=== PATIENT | male | born 1985 | race Caucasian/White ===

== ENCOUNTER 2017-10-01 18:22 | Emergency (ER) | payer BC ==
[2017-10-01] MEDS ORDERED: Rabies Vaccine (RabAvert)* 2.5 UNITS VIAL IM ONE (20:14)
[2017-10-01] MEDS ORDERED: Rabies Immune Globulin 10 ML* 150 UNIT/ML VIAL IM ONE (20:14)
--- NOTE | 2017-10-01 20:23 | ED ---
Bite Injury/Animal - HPI Summary HPI Summary: Patient and his woke up this morning with live bat in the room. No known history of bite. PCP sent family for rabies Ig and vaccination. Denies rash, fever, cough, sore throat, CP, SOB, N/V/V abdominal pain, change in urinary BM. Tetanus status up-to-date. Rabies vaccination status unknown - History of Current Complaint Chief Complaint: EDGeneral Stated Complaint: BAT EXPOSURE Time Seen by Provider: 10/01/17 19:05 Hx Obtained From: Patient Onset of Injury: Happened hours ago Type of Bite: Animal Pain Intensity: 0 Associated Signs And Symptoms: Positive: Negative - Allergies/Home Medications Allergies/Adverse Reactions: Allergies Allergy/AdvReac Type Severity Reaction Status Date / Time No Known Allergies Allergy Verified 10/01/17 18:34 Home Medications: Home Medications Dextroamphetamine/Amphetamine [Adderall Xr 30 mg Capsule] 25 mg PO DAILY [History Confirmed 10/01/17] PMH/Surg Hx/FS Hx/Imm Hx - Immunization History Date of Tetanus Vaccine: 05/2017 Immunizations Up to Date: Yes Infectious Disease History: No Infectious Disease History: Denies: Traveled Outside the [place] in Last 30 Days - Social History Alcohol Use: Weekly Alcohol Amount: 2x/week Substance Use Type: Reports: None Smoking Status (MU): Never Smoked Tobacco Review of Systems Constitutional: Negative Eyes: Negative ENT: Negative Cardiovascular: Negative Respiratory: Negative Gastrointestinal: Negative Genitourinary: Negative Musculoskeletal: Negative Skin: Negative Neurological: Negative Psychological: Normal All Other Systems Reviewed And Are Negative: Yes Physical Exam - Summary Physical Exam Summary: No rash or wounds found. Patient in no apparent distress, has no complaints. Triage Information Reviewed: Yes Vital Signs On Initial Exam: Initial Vitals Temp Pulse Resp BP Pulse Ox 98.9 F 84 16 117/78 98 10/01/17 18:32 10/01/17 18:32 10/01/17 18:32 10/01/17 18:32 10/01/17 18:32 Vital Signs Reviewed: Yes Appearance: Positive: Well-Appearing Skin: Positive: Warm Head/Face: Positive: Normal Head/Face Inspection Eyes: Positive: Normal ENT: Positive: Normal ENT inspection Neck: Positive: Supple Respiratory/Lung Sounds: Positive: Clear to Auscultation Cardiovascular: Positive: Normal Abdomen Description: Positive: Nontender Musculoskeletal: Positive: Normal Neurological: Positive: Normal Psychiatric: Positive: Normal AVPU Assessment: Alert - [place] Coma Scale Best Eye Response: 4 - Spontaneous Best Motor Response: 6 - Obeys Commands Best Verbal Response: 5 - Oriented Coma Scale Total: 15 Diagnostics - Vital Signs Vital Signs Temp Pulse Resp BP Pulse Ox 10/01/17 18:32 98.9 F 84 16 117/78 98 - Laboratory Lab Statement: Any lab studies that have been ordered have been reviewed, and results considered in the medical decision making process. Bite Injury Course/Dx - Course Course Of Treatment: D[facility] patient and family with [facility] who recommended immunoglobulin and vaccine for mom and dad and jessica (whose door was open). Stated it was not necessary vaccinate the youngest child as that bedroom door was closed. Patient will be called by health department tomorrow to arrange follow-up vaccinations. - Diagnoses Provider Diagnosis: Exposure to bat without known bite Discharge - Sign-Out/Discharge Documenting (check all that apply): Discharge/Admit/Transfer - Discharge Plan Condition: Stable Disposition: HOME Patient Education Materials: Rabies Vaccine (By injection), Rabies Immune Globulin (By injection), Rabies (ED) Referrals: Christiano Marrero MD [Primary Care Provider] - Additional Instructions: Follow-up with [facility] to arrange for following vaccinations on days 3, 7, 14. [facility] does not recommend rabies vaccination or immunoglobulin for youngest child whose door was closed. Return to the ED for any new or worsening symptoms - Billing Disposition and Condition Condition: STABLE Disposition: HOME
[2017-10-01 23:15] VITALS: BP 123/75
== END 2017-10-01 23:07 | disposition home or self-care (01) ==
LOC: ED 18:22
DX: Z20.3 Contact with and (suspected) exposure to rabies (principal)
CPT/HCPCS: 90375; 90471; 90675; 99281

== ENCOUNTER 2019-06-01 09:11 | Emergency (ER) | payer OTHER ==
[2019-06-01 09:29] VITALS: BP 115/75
--- NOTE | 2019-06-01 10:13 | UC ---
Nausea/Vomiting/Diarrhea HPI - HPI Summary HPI Summary: 34 y/o male presents to the urgent care c/o Vomiting/ dairrhea since last night. Reports chills last night - History of Current Complaint Chief Complaint: UCGeneralIllness Stated Complaint: NAUSEA, DIARRHA Time Seen by Provider: 06/01/19 10:11 Hx Obtained From: Patient Onset/Duration: Gradual Onset, Lasting Days - 1 day, Still Present - but better Timing: Intermittent Episodes Lasting: - seconds Severity Initially: Mild Severity Currently: Mild Pain Intensity: 2 - bodya aches Pain Scale Used: 0-10 Numeric Location: Diffuse - mild ache Character: Cramping - before bowel movement and then it resolves Aggravating Factor(s): Nothing Alleviating Factor(s): Bowel Movement Nausea/Vomiting Presence: Nauseated - last night, Vomiting - last night Vomiting Frequency: At Meal Time - last nihgt 1 big episode Nausea/Vomiting Duration: 0-12 hours Vomiting Characteristics: Nonbilious Diarrhea Presence: Yes Diarrhea Frequency: Daily - 1 boig episode today Diarrhea Duration: 12-24 hours Diarrhea Characteristics: Watery - Risk Factors Influenza Risk Factors: Negative Surgical Obstruction Risk Factor(s): Negative - Allergies/Home Medications Allergies/Adverse Reactions: Allergies Allergy/AdvReac Type Severity Reaction Status Date / Time No Known Allergies Allergy Verified 06/01/19 09:22 Home Medications: Home Medications Dextroamphetamine/Amphetamine [Adderall Xr 20 mg Capsule] 1 cap PO DAILY WITH MEAL 06/01/19 [History Confirmed 06/01/19] PMH/Surg Hx/FS Hx/Imm Hx - Surgical History Surgery Procedure, Year, and Place: Pyloric stenosis as infant. T&A - Social History Alcohol Use: Occasionally Substance Use Type: None Smoking Status (MU): Never Smoked Tobacco Physical Exam - Summary Physical Exam Summary: Vital Signs Reviewed: Yes General:Patient is a well developed and nourished male who is sitting comfortable in the examining table. Patient is not in any acute respiratory distress. Eyes: Positive: Conjunctiva Clear - PERRLA, EOMI, fundi grossly normal ENT: Positive: Normal ENT inspection, Hearing grossly normal, Pharynx normal, TMs normal Neck: Positive: Supple, Nontender, No Lymphadenopathy Respiratory: Positive: Chest non-tender, Lungs clear, Normal breath sounds, No respiratory distress Cardiovascular: Positive: RRR,S1 and S2 present, No Murmur, Pulses Normal, Brisk Capillary Refill Abdomen Description: Positive: Nontender, Other: - Abd: Flat with no distention. No surface trauma, scars, incisions. hyperactive bowel sounds present in all four quadrants. No tenderness, guarding, rigidity to palpation. No masses palpated, no pulsation in epigastric area. No organomegaly. Negative Sontag signs. No periumbilical tenderness. No rebound in the lower quadrants. NT over McBurneys point. Left side suprapubic tenderness with no distension. Good femoral pulses bilaterally. No hernia noted. No CVAT bilaterally Musculoskeletal: Positive: Strength Intact, ROM Intact, No Edema,FROM in all major joints, no edema, no cyanosis or clubbing. Neuro: Alert and oriented x 3. No acute neurological deficits. Speech is normal. Psychological: WNL Skin: Dry and warm Triage Information Reviewed: Yes Vital Signs: Initial Vital Signs Temp 98.4 F 06/01/19 09:24 Pulse 87 06/01/19 09:24 Resp 18 06/01/19 09:24 BP 115/75 06/01/19 09:24 Pulse Ox 99 06/01/19 09:24 Naus/Vom/Diarrhea Course/Dx - Differential Dx/Diagnosis Differential Diagnoses - Male: Appendicitis, Gastroenteritis (Viral), Gastroenteritis (Bacterial), Vomiting, Diarrhea, Colitis Provider Diagnosis: Vomiting and diarrhea Condition At Discharge: Stable Discharge ED - Sign-Out/Discharge Documenting (check all that apply): Patient Departure - D/C home All imaging exams completed and their final reports reviewed: No Studies - Discharge Plan Condition: Stable Disposition: HOME Patient Education Materials: Gastroenteritis (ED) Forms: *Work Release Referrals: Christiano Marrero MD [Primary Care Provider] - 2 Days Additional Instructions: 1- Please increase fluid intake w/ Pedialyte or Gatorade. eat soft meals and avoid strenuous exercise and rest 2-If Diarrhea worsens please take Imodium PO. 3-Please take Zofran PO as directed only if vomiting returns 4-If symptoms do not improve or worsen please return to the urgent care or f/u with your PCP for further evaluation and treatment. 5- If you develops fever or abdominal pain w/ recurrent episodes of diarrhea please go to the ER, otherwise f/u with your PCP if diarrhea not resolving in 2- 3 days - Billing Disposition and Condition Condition: STABLE Disposition: Home
[2019-06-01 10:43] LABS: Influenza A Molecular NEGATIVE (Negative); Influenza B Molecular NEGATIVE (Negative)
== END 2019-06-01 10:55 | disposition home or self-care (01) ==
LOC: UCEAST 09:11 → MERGE 09:11 → UCEAST 10:55
DX: R19.7 Diarrhea, unspecified (principal); R11.2 Nausea with vomiting, unspecified
CPT/HCPCS: 82270; 83630; 87045; 87046; 87425; 87493; 87899; 99202; G0463

== ENCOUNTER 2019-07-09 09:41 | Emergency (ER) | payer OTHER ==
[2019-07-09 09:53] VITALS: BP 110/81
--- NOTE | 2019-07-09 10:26 | UC ---
Eye Complaint HPI - HPI Summary HPI Summary: Pt presents to with 2 complaints: 1) pt with left eye reddness,drainage, itching x 2 days. PT had similar sx in right eye -resolved earlier this week. Pt wears glasses, no contact. Pt has head congestion, sinus pressure, pnd and cough x 2 weeks. pt states feels fatigue. mild cough - non productive. + PND + ear fullness. Pt has been using Afrin with short term relief. Pt denies n/v/d. No rash No fever, chills. Pt denies rubalcava, vision changes. Pt states kdis have been sick, one with inluenza Works in [employer] for [employer] 2) Pt sustained laceration to right thumb this am cutting bagel at home. cleansed and bandaged. no active bleeding. 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 T&A - Family History Known Family History: Positive: Cardiac Disease, Diabetes, Non-Contributory - Social History Occupation: Employed Full-time Lives: With Family Alcohol Use: Occasionally Alcohol Amount: 2x/week Substance Use Type: None Smoking Status (MU): Never Smoked Tobacco Review of Systems All Other Systems Reviewed And Are Negative: Yes Constitutional: Positive: Fatigue. Negative: Fever Skin: Positive: Other - laceration Eyes: Positive: Drainage, Eye Redness ENT: Positive: Nasal Discharge, Sinus Congestion Respiratory: Positive: Cough. Negative: Shortness Of Breath Cardiovascular: Positive: Negative Gastrointestinal: Positive: Negative Genitourinary: Positive: Negative Physical Exam - Summary Physical Exam Summary: Vital Signs Reviewed: Yes A+Ox3, no distress, congested Eyes: SLOAN. EOM intact and full, left eye + injection, no lid edema, no photophobia ENT: Hearing grossly normal TM x 2 clear, + congested and boggy, + PND, + TTP max sinus L>R + frontal sinus congestion, mmoist, uvula midline, no exudate, no erythema Neck: Positive: Supple Respiratory: Positive: No respiratory distress, No accessory muscle use + CTA throughout no w/r Cardiovascular: RRR nl s1, s2 no m/r CBT <2 sec abd soft + BS nt/nd no guarding, no distension Musculoskeletal Exam: GUDINO x 4 without difficulty Strength Intact, ROM Intact Neurological: Positive: Alert, + sensation throughout Psychological: Positive: Normal 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 Skin: Positive: no rash, no ecchymosis, right thumb: 1cm laceration lateral aspect from pad to edge of nail - no nail involvement, no active bleeding Triage Information Reviewed: Yes Vital Signs: Initial Vital Signs Temp 98.4 F 07/09/19 09:48 Pulse 81 07/09/19 09:48 Resp 18 07/09/19 09:48 BP 110/81 07/09/19 09:48 Pulse Ox 99 07/09/19 09:48 Eye Complaint Course/Dx - Course Course Of Treatment: Pt presetnes with 2 complaints 1) left eye erythema, drainage, sinus congestion, coug x 2 weeks On exam -c/w rhinosinusitiss and conjunctivitis will check influenz - daughter with + flu - 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 If neg abx abx for eye pt resistant to flonase, decongestant as on addrerall reviewed with pt caution regarding ongoin Afrin use pt understanding of precaution 2_ pt with wound left thumb wound irrigated - well aligned,no active bleeding reviewed treatment options with pt after verbal permission - applied skin adhesive with good approximation Pt given tetanus booster reivewed wound care s/s infection - Differential Dx/Diagnosis Provider Diagnosis: Conjunctivitis, Rhinosinusitis, Need for tetanus booster, Laceration Discharge ED - Sign-Out/Discharge Documenting (check all that apply): Patient Departure All imaging exams completed and their final reports reviewed: No Studies - Discharge Plan Condition: Stable Disposition: HOME Prescriptions: Amoxicillin PO (*) [Amoxicillin 500 MG CAP*] 500 mg PO Q12H #20 cap Fluticasone NASAL SPRAY 50MCG* [Flonase NASAL SPRAY 50MCG*] 2 spray BOTH NARES DAILY #1 btl Patient Education Materials: Diphtheria/Acellular Pertussis/Tetanus Booster Vaccine (By injection), Upper Respiratory Infection (ED), Skin Adhesive Care (ED ), Conjunctivitis (ED) Referrals: Christiano Marrero MD [Primary Care Provider] - Additional Instructions: - apply eye drops to affected every 3 times a day for 5 days -okay to alternate ibuprofen (Advil, Motrin) 600mg and tylenol every 3 hours for pain. Take with food - these infections are very contagious - thoroughly wash hands before and after applying eye drops. - wash her bedding, pillows frequently - If eyelids become sticky - use a warm, wet cloth to soften and clean away secretions -contact the eyeglass frames inspector to schedule a follow-up or if you have any questions or concerns For your sinuses: - Stay well hydrated. Drink plenty of non-alcoholic, non-caffinated beverages. - use nasal spray and antibiotics as prescribed - Alternate ibuprofen (Advil, Motrin) 600mg and Tylenol every 3 hours for pain or fever. Take with food. Do NOT take for more than 4-5 days. - These infections are spread by secretions - do NOT share eating or drinking utensils - clean items you share with other people such as cell phones, computer mouse, TV remote, computer tablets,etc. Once you have been on antibiotics for 2 days, change your toothbrush and your pillowcase. - get plenty of restful sleep - humidify the air in the room where you sleep - boil water, run a hot steam shower, vaporizer, cups of water by heat register - okay to take over the counter decongestant and cough medication - contact your doctor or return with questions or concerns For your wound - Keep clean and dry today Okay to get wet, pat dry starting tomorrow monitor for signs of infection - increased reddness, red streaking, swelling, pain Keep covered at work for protect of wound your arm will likely hurt tomorrow from your tetanus vaccination - this is normal - Billing Disposition and Condition Condition: STABLE Disposition: Home
[2019-07-09 11:01] LABS: Influenza A Molecular Negative (Negative); Influenza B Molecular Negative (Negative)
[2019-07-09] MEDS ORDERED: Tetan/Diph/Pertus SYR(Tdap)* 0.5 ML SYR(BOOSTRIX) use SYR contains LATEX IM ONE (11:12)
== END 2019-07-09 11:37 | disposition home or self-care (01) ==
LOC: UCEAST 09:41
DX: H10.9 Unspecified conjunctivitis (principal); J32.9 Chronic sinusitis, unspecified; S61.011A Laceration without foreign body of right thumb without damage to nail, initial encounter; W26.9XXA Contact with unspecified sharp object(s), initial encounter; Y92.009 Unspecified place in unspecified non-institutional (private) residence as the place of occurrence of the external cause
CPT/HCPCS: 12001; 90471; 90715; 99212; G0463